=== PATIENT | female | born 1940 | race Caucasian/White ===

== ENCOUNTER 2019-08-07 09:56 | Observation (INO) ==
--- NOTE | 2019-08-07 10:16 | PROVIDER DOCUMENTATION ---
HPI-General Adult - General Chief Complaint: Dizziness Stated Complaint: CP X A COUPLE OF DAYS.... HP Time Seen by Provider: 08/07/19 10:05 Source: patient Allergies/Adverse Reactions: Patient Allergies Allergy/AdvReac Type Severity Reaction Status Date / Time cephalexin monohydrate * AdvReac Intermediate DIARRHEA Verified 10/11/15 17:55 [From Keflex] lactose AdvReac Intermediate DIARRHEA Verified 10/11/15 17:55 Sulfa (Sulfonamide AdvReac Mild NAUSEA Verified 10/11/15 17:55 Antibiotics) Home Medications: Home Medication List Medication Instructions Recorded Confirmed Last Taken Type Aspirin 81 mg PO DAILY 02/28/13 08/07/19 08/07/19 08:00 History 81 mg Folic Acid 1 mg PO DAILY 10/11/15 08/07/19 08/07/19 08:00 History 1 mg Methotrexate 6 tab PO DIRECTED 10/11/15 08/07/19 08/04/19 21:00 History 15 mg Clopidogrel Bisulfate [Plavix] 75 mg PO DAILY 08/07/19 08/07/19 08/07/19 08:00 History 75 mg Diltiazem HCl [Cartia Xt] 120 mg PO DAILY 08/07/19 08/07/19 08/07/19 08:00 History 120 mg Meclizine HCl 25 mg PO PRN PRN 08/07/19 08/07/19 Unknown History Pantoprazole [Protonix] 40 mg PO DAILY 08/07/19 08/07/19 08/07/19 08:00 History 40 mg Pravastatin Sodium 20 mg PO HS 08/07/19 08/07/19 08/06/19 21:00 History 20 mg Sitagliptin Phos/Metformin HCl 1 ea PO DAILY 08/07/19 08/07/19 08/07/19 08:00 History [Janumet Xr 100-1,000 mg Tablet] 1 tab - History of Present Illness -Gen Adult Nature of Presenting Problems: Pt. is 78 yof that presents with c/o CP intermittently, right shoulder pain, left jaw pain and some nausea. She denies any vomiting or SOB. She reports having 12 stints placed and the last one was in 2010. Pt. denies any other complaints. Location of Pain/Injury: reports: chest. denies: none, head, face, mouth, neck, upper extremity, hand(s), abdomen, back, pelvis, genitalia, lower extremity, feet, upper body, lower body, generalized, other Pain Radiation: reports: arm(s) (Right), jaw. denies: no radiation, back, buttocks, chest, epigastric, feet, groin, flank (L), legs (lower), LLQ, LUQ, neck, periumbilical, flank (R), RLQ, RUQ, shoulder(s), scapula, scrotal, sternal notch, suprapubic, legs (upper), urethral, vaginal, other Quality of Pain: reports: aching. denies: burning, pressure, tightness Severity: reports: mild. denies: moderate, severe Onset/Duration: reports: abrupt, 2 days ago Timing: reports: improving, intermittent. denies: constant, changing over time, getting worse Context/Activities at Onset: reports: none. denies: light activity, moderate activity, vigorous activity, recent emotional stress, recent physical stress, recent trauma history, possible bad food, cold exposure, eating, out of country travel, rest, sleep, sexual activity, other Modifying Factors: improves with: nothing Associated Symptoms: reports: chest pain, dizziness, nausea. denies: denies symptoms, anxiety, arm pain, back/neck pain, constipation, cough, diaphoresis, diarrhea, EENT symptoms, fatigue, fever/chills, genitourinary problems, headaches, heartburn, joint pain, loss of appetite, malaise, muscle aches, sinus congestion/drainage, rash, seizure, shortness of breath, sensory/motor loss, pain with inspiration, swelling/mass in abdomen, syncope, vomiting, weakness, trouble walking, other Similar Symptoms Previously?: Yes Recently seen or treated by another doctor?: No Review of Systems - Adult - REVIEW OF SYSTEMS - ADULT Constitutional: reports: no symptoms reported Eyes: reports: no symptoms reported Ears, Nose, Mouth & Throat: reports: no symptoms reported Cardiovascular: reports: see HPI, chest pain. denies: irregular heart rate, palpitations, syncope Respiratory: reports: no symptoms reported Gastrointestinal: reports: see HPI, nausea. denies: hematemesis, diarrhea, vomiting Genitourinary: reports: no symptoms reported Musculoskeletal: reports: no symptoms reported Integumentary: reports: no symptoms reported Neurological: reports: see HPI, dizziness/vertigo. denies: numbness, seizure, tremors Psychiatric: reports: no symptoms reported Past History - Adult - PAST MEDICAL HISTORY-ADULT Review of Records: reports: Old Records Reviewed, Nursing Assessment Review, Medications Reviewed, Social history reviewed & non-contributory. Major Childhood Illnesses: reports: denies history Cardiovascular: reports: other (12 heart stents) Gastrointestinal: reports: IBS Endocrine/Immune: reports: Diabetes - IMMUNIZATION STATUS Childhood Immunizations: See Nurse Assessment Flu Vaccine: See Nurse Assessment - FAMILY HISTORY Family History: reviewed, not pertinent - SOCIAL HISTORY Smoking: denies Physical Exam-General - PHYSICAL EXAM-ADULT Initial Vital Signs Reviewed: Yes - CONSTITUTIONAL General Appearance: alert, no apparent distress. negative: anxious, slow to respond, obtunded, combative - EYES Eyes: PERRL/EOMI, pink conjunctivae - HEAD, EARS, NOSE, MOUTH & THROAT HENMT: normocephalic/atraumatic, moist mucous membranes. negative: angioedema, frontal tenderness, maxillary tenderness - NECK Neck: non-tender, full range of motion, supple, normal inspection - RESPIRATORY Respiratory: lungs clear, normal breath sounds - CARDIOVASCULAR Cardiovascular: normal peripheral pulses, regular rate, rhythm, no edema - GASTROINTESTINAL (ABDOMEN) Abdominal Exam: normal bowel sounds, non tender, soft - LYMPHATIC Lymphatic: no adenopathy - MUSCULOSKELETAL Back Exam: normal inspection, no CVA tenderness, no vertebral tenderness Extremity: normal range of motion, non-tender, normal gait, normal inspection. negative: erythema, swelling, tenderness Peripheral Pulses: radial (R): 2+, radial (L): 2+ - SKIN Integumentary: normal color, normal turgor, warm/dry - NEUROLOGIC Neurologic: grossly normal, no motor/sensory deficits - PSYCHIATRIC Psych/Mental Status: normal mood/affect, normal thought content, normal thought process, oriented x 3. negative: anxious, paranoid, tearful Progress - PLAN OF CARE/RESULTS Progress/Plan/Lab Results: Vital Signs - 8 hr 08/07/19 09:59 Temperature 98.2 F Pulse Rate 67 Respiratory Rate 20 Blood Pressure 165/81 O2 Sat by Pulse Oximetry 98 Orders Category Date Time Status Saline Loc NOW Care 08/07/19 10:06 Active CHEST-PORTABLE [RAD] Stat Exams 08/07/19 10:06 Ordered CBC WITH ELECTRONIC DIFF [HEME] Stat Lab 08/07/19 10:06 Uncollected CK PROFILE [SP CHEM] Stat Lab 08/07/19 10:06 Uncollected COMPREHENSIVE METABOLIC PANEL [CHEM] Stat Lab 08/07/19 10:06 Uncollected TROPONIN T Stat Lab 08/07/19 10:06 Uncollected URINALYSIS W/POSS RFLX CULT [URINALYSIS] Stat Lab 08/07/19 10:06 Uncollected EKG [EKG] Stat Ther 08/07/19 10:05 Ordered Laboratory Tests 08/07/19 08/07/19 08/07/19 10:47 10:47 10:47 WBC 10.19 RBC 4.64 Hgb 12.0 Hct 37.9 MCV 81.7 MCH 25.9 L MCHC 31.7 L RDW Std Deviation 21.5 H Plt Count 303 MPV 11.1 H Immature Gran % (Auto) 0.2 Neut % (Auto) 78.5 H Lymph % (Auto) 13.4 L [place] % (Auto) 6.6 Eos % (Auto) 1.0 Baso % (Auto) 0.3 Immature Gran # (Auto) 0.02 Neut # (Auto) 8.00 H Lymph # (Auto) 1.37 [place] # (Auto) 0.67 H Eos # (Auto) 0.10 Baso # (Auto) 0.03 Sodium 141 Potassium 4.3 Chloride 105 Carbon Dioxide 23 L Anion Gap 13 BUN 14 Creatinine 0.8 Estimated GFR/1.73 m2 > 60 BUN/Creatinine Ratio 18 Glucose 153 H Calculated Osmolality 285 Calcium 9.4 Total Bilirubin 0.43 AST 16 ALT 15 Alkaline Phosphatase 61 Creatine Kinase 38 Troponin T < 0.010 Total Protein 6.3 Albumin 4.2 Globulin 2.1 Albumin/Globulin Ratio 2.0 Urine Source Urine Color Urine Turbidity Urine pH Ur Specific [place] Urine Protein Ur Glucose (Stick) Ur Ketones (Stick) Urine Blood Urine Nitrite Urine Bilirubin Urobilinogen Dipstick Urine Leukocytes Urine WBC (Auto) Urine RBC (Auto) U Epithel Cells (Auto) Urine Bacteria (Auto) 08/07/19 08/07/19 08/07/19 11:00 12:55 12:55 WBC RBC Hgb Hct MCV MCH MCHC RDW Std Deviation Plt Count MPV Immature Gran % (Auto) Neut % (Auto) Lymph % (Auto) [place] % (Auto) Eos % (Auto) Baso % (Auto) Immature Gran # (Auto) Neut # (Auto) Lymph # (Auto) [place] # (Auto) Eos # (Auto) Baso # (Auto) Sodium Potassium Chloride Carbon Dioxide Anion Gap BUN Creatinine Estimated GFR/1.73 m2 BUN/Creatinine Ratio Glucose Calculated Osmolality Calcium Total Bilirubin AST ALT Alkaline Phosphatase Creatine Kinase 35 Troponin T < 0.010 Total Protein Albumin Globulin Albumin/Globulin Ratio Urine Source CLEAN CATCH Urine Color YELLOW Urine Turbidity CLEAR Urine pH 6.0 Ur Specific [place] 1.008 Urine Protein NEGATIVE Ur Glucose (Stick) NEGATIVE Ur Ketones (Stick) NEGATIVE Urine Blood NEGATIVE Urine Nitrite NEGATIVE Urine Bilirubin NEGATIVE Urobilinogen Dipstick NORMAL Urine Leukocytes NEGATIVE Urine WBC (Auto) <10 Urine RBC (Auto) <10 U Epithel Cells (Auto) <10 Urine Bacteria (Auto) NEGATIVE Dr. Hand at bedside for evaluation. Discussed results and plan of care with patient. Pt. reluctantly agrees to plan of admission. Result Diagrams: 08/07/19 10:47 08/07/19 10:47 - EKG 1 Time of EKG reading by physician:: 10:12 EKG Read and Signed by:: Anthony Hand EKG Interpretation (*Must complete 3 of following elements*): Abnormal Rate: 57 Rhythm: NSR [place]: normal QRS: normal MT Interval: shortened ST Wave: normal - XRAY 1 XRAY Study: Chest ([facility] - [address] [facility] [address] [place] [id number] [facility] - [address] [place] [address] Department of Imaging Patient: ANN HORTON HAD Date: 08/07/19MR#: [id number] : 1940DM Status: PRE ERAcct#: [id number] Age/Sex: 78/FRoom/Bed: Loc: ED Ordering Physician: Tariq Norris Family Physician: Delfino Dixon DO Reason for Procedure: dizziness/CP Signed EXAM: CHEST-PORTABLE HISTORY: dizziness/CP TECHNIQUE: Single view COMPARISON: 09/03/2018 FINDINGS: The lungs are well expanded. The heart is not enlarged. The vessels are not distended. There are no infiltrates. No effusion identified. Stable lower left lung nodules. There is a cardiac stent. IMPRESSION: No acute abnormality. Electronically signed by Keenan Chambers 08/07/2019 10:37 AM 08/07/19 1037 Interpreting Physician: Keenan Chambers MD Dictated Date/Time: 08/07/19 1037 cc: Tariq Norris; Delfino Dixon DO) XRAY Interpretation: See note - CONSULTS/PCP/HOSPITALIST Notification #1 *Consult/PCP/Hospitalist*: Lorena for hospitilist Time Discussed: 14:09 Reason/Comments: Admission Consult Disposition: Will see in ED, Admit Departure - Departure Date of Disposition Decision: 08/07/19 Time of Disposition Decision: 14:06 DIAGNOSIS: Chest pain Qualifiers: Chest pain type: unspecified Qualified Code(s): R07.9 - Chest pain, unspecified Disposition: ADMITTED INPATIENT 09 Certified Medical Emergency: Emergent Condition: Stable Referrals and Follow-Ups: Delfino Dixon DO [Primary Care Provider] - - Critical Care Note This patient required my direct & personal management of CC.: No Attestation - Physician/ JOON Attestation Patient care was provided by Advanced Practice Provider:: Yes Advanced Practice Provider:: Tariq Norris Advanced Practice Provider documentation review:: The Mid-level provider docu mentation, treatment plan and medical decision making was reviewed by the physician who agrees with all treatment and medical decision making by the P. The physician spent face to face time with patient:: Yes Advanced Practice Provider documentation review:: Supervising physician onsite and consulted in the evaluation and care of this patient. The physician did have a face to face encounter with the patient. - HEART Score HEART Score: History: Highly Suspicious HEART Score: ECG: Non-Specific Repolarization Disturbance/LBBB/PM HEART Score: Age: > or = 65 Years HEART Score: Risk Factors for Atherosclerotic Disease: > or = 3 Risk Factors or History of Atherosclerotic Disease HEART Score: Troponin: < or = Normal Limit Total HEART Score:: 7
--- NOTE | 2019-08-07 10:40 | Diag Imaging Result Doc PS360 ---
EXAM: CHEST-PORTABLE HISTORY: dizziness/CP TECHNIQUE: Single view COMPARISON: 09/03/2018 FINDINGS: The lungs are well expanded. The heart is not enlarged. The vessels are not distended. There are no infiltrates. No effusion identified. Stable lower left lung nodules. There is a cardiac stent. IMPRESSION: No acute abnormality. Electronically signed by Keenan Chambers 08/07/2019 10:37 AM
[2019-08-07 11:02] LABS: BASO# 0.03 X1000 (0.0-0.2); BASO% 0.3 % (0.0-0.8); HEMATOCRIT 37.9 % (37.0-47.0); IMM GRAN# 0.02 X1000 (0.0-0.04); IMM GRAN% 0.2 % (0.0-0.5); LYMPH# 1.37 X1000 (1.2-3.4); LYMPH% 13.4 % (20.5-51.1); MCH 25.9 PG (27-31); MCHC 31.7 g/dL (33-37); MCV 81.7 FL (81-99); MONO# 0.67 X1000 (0.11-0.59); MONO% 6.6 % (1.7-9.3); MPV 11.1 FL (7.4-10.4); NEUT% 78.5 % (42.2-75.2); PLT 303 X1000 (130-400); RBC 4.64 XMIL (4.2-5.4); RDW 21.5 % (11.5-14.5); WBC 10.19 X1000 (4.8-10.8)
[2019-08-07 11:12] LABS: URINE SOURCE CLEAN CATCH
[2019-08-07] MEDS ORDERED: CATAPRES PO ONE (11:18)
[2019-08-07 11:19] LABS: BILIRUBIN URINE NEGATIVE (NEGATIVE); BLOOD URINE NEGATIVE (NEGATIVE); COLOR YELLOW; GLUCOSE URINE NEGATIVE (NEGATIVE); KETONE URINE NEGATIVE (NEGATIVE); LEUKOCYTES URINE NEGATIVE (NEGATIVE); NITRITE URINE NEGATIVE (NEGATIVE); PROTEIN URINE NEGATIVE (NEGATIVE); SP GRAVITY URINE 1.008; TURBIDITY URINE CLEAR (CLEAR); UROBILINOGEN URINE NORMAL (NORMAL)
[2019-08-07 11:21] LABS: UR EPITHELIAL CELLS <10 /HPF (<10); URINE BACTERIA NEGATIVE /HPF; URINE RBC <10 /HPF (<10); URINE WBC <10 /HPF (<10)
[2019-08-07 11:28] LABS: AGAP 13; ALBUMIN 4.2 g/dL (3.5-5.0); ALKALINE PHOSPHATASE 61 U/L (32-104); BUN 14 mg/dL (8-22); CALCIUM 9.4 mg/dL (8.8-10.2); CHLORIDE 105 mmol/L (98-107); CK PROFILE 38 U/L (24-173); COSMO 285; CREATININE 0.8 mg/dL (0.5-0.9); ESTIMATED GFR > 60; GLUCOSE 153 mg/dL (70-104); GOT 16 U/L (10-30); GPT 15 U/L (10-36); POTASSIUM 4.3 mmol/L (3.5-5.1); SODIUM 141 mmol/L (136-145); TCO2 23 mmol/L (25-35); TOTAL BILIRUBIN 0.43 mg/dL (0.20-1.00); TOTAL PROTEIN 6.3 g/dL (6.3-8.3)
--- NOTE | 2019-08-07 11:49 | EKG Report ---
Test Performed on : 08/07/2019 10:03:38 AM Test Reason : DIZZY Blood Pressure : / mmHG Vent. Rate : 057 BPM Atrial Rate : 057 BPM P-R Int : 000 ms QRS Dur : 098 ms QT Int : 428 ms P-R-T Axes : 000 013 050 degrees QTc Int : 416 ms Junctional rhythm. Abnormal ECG When compared with ECG of 06-JAN-2014 00:39, Junctional rhythm. has replaced Sinus rhythm. Unconfirmed Result
--- NOTE | 2019-08-07 13:18 | EKG Report ---
Test Performed on : 08/07/2019 12:56:39 PM Test Reason : REPEAT Blood Pressure : / mmHG Vent. Rate : 055 BPM Atrial Rate : 055 BPM P-R Int : 152 ms QRS Dur : 096 ms QT Int : 466 ms P-R-T Axes : 059 014 051 degrees QTc Int : 445 ms Sinus bradycardia. with occasional premature ventricular complexes. Incomplete right bundle branch block Borderline ECG When compared with ECG of 07-AUG-2019 10:03, (Unconfirmed) Sinus rhythm. has replaced Junctional rhythm. Unconfirmed Result
--- NOTE | 2019-08-07 13:59 | ED EKG INTERP ---
This chart was entered by Traci Valladares Scribe, acting as scribe for Anthony Hand MD. EKG Interpretation - EKG Time of EKG reading by physician:: 12:56 EKG Read and Signed by:: Anthony Hand EKG Interpretation (*Must complete 3 of following elements*): Abnormal Rate: 55 Rhythm: sinus penny [place]: normal [place] Interval: normal Comments: high voltage; R hemiblock; PVCs Attestation - Physician/ JOON Attestation Patient care was provided by Advanced Practice Provider:: Yes Advanced Practice Provider:: Tariq Norris Advanced Practice Provider documentation review:: The Mid-level provider documentation, treatment plan and medical decision making was reviewed by the physician who agrees with all treatment and medical decision making by the P. The physician spent face to face time with patient:: No Advanced Practice Provider documentation review:: Supervising physician onsite and consulted in the evaluation and care of this patient. The physician did not have a face to face encounter with the patient. This chart was documented by the indicated scribe, (Traci Valladares Scribe) and accurately reflects the services I performed and decisions made by Peace hutson Kent A., MD, as attested by the provider's signature.
--- NOTE | 2019-08-07 17:46 | HISTORY AND PHYSICAL ---
ADDENDUM: I have seen and examined Ms. Krishnamurthy today. Ms. Krishnamurthy presents with her main concern because of elevated blood pressure, but she also has some chest discomfort radiating to her neck and the right shoulder intermittently for the past 3 days. She said at home, her blood pressure went up to 167 plus. Here in the emergency room, it was found that she had a blood pressure up to 208/87. She has been admitted to rule out any acute coronary syndrome and also for adequate blood pressure control. Her current blood pressure is 144/59. Her physical exam for the most part is unremarkable. I have also reviewed her laboratory data. Troponin so far is unremarkable. Her EKG has been done twice, no ST-segment or T-wave abnormality. The patient has a normal sinus rhythm. Occasional PVCs noted. ASSESSMENT/PLAN: 1. Chest discomfort on admission with negative initial troponin and unremarkable EKG. We think this is probably related to precordialgia associated with severe hypertension. Blood pressures have been better controlled. The patient's symptoms have also improved. We are going to repeat a troponin 3 times to rule out any acute coronary syndrome. We will also repeat her EKG in the morning. If everything comes back negative, I think we will be okay to discharge her. 2. History of coronary artery disease, status post multiple stents. According to Ms. Krishnamurthy, she had 12 stents in the past. Follows up with Dr. Valdez in [facility]. 3. Microcytosis. The patient does have iron studies from 2016, which were normal. We will repeat this test in the morning. 4. Diabetes mellitus. The patient is on oral hypoglycemic agents. We will use insulin regimen for now. I think she will be okay going back home on her oral regimen. 5. Dyslipidemia. Please refer to the details of the history and physical which has been dictated by the OUTREACH DIRECTOR in the chart. I have reviewed the plan with her. cc: Alcon Shannon MD
--- NOTE | 2019-08-07 20:20 | HISTORY AND PHYSICAL ---
CHIEF COMPLAINT: Chest pain, left jaw and shoulder pain. HISTORY OF PRESENT ILLNESS: This is a very pleasant 78-year-old female with a history of coronary artery disease status post multiple stents and hypertension. She is followed by Dr. Valdez in [place]. She presents to the emergency room complaining of chest discomfort that has radiated to her neck and her right shoulder intermittently over the past 3 days, along with blood pressures that have been up to the 160s to 170 systolic. On arrival to the emergency room, she was found to have a blood pressure of 208/87. She was given clonidine, and pressures have been in the 120s to 150s over primarily 60s to 70s since. Chest pressure and jaw and shoulder pain resolved once blood pressure decreased. The patient states she was having trouble with hypotension, and Dr. Valdez and her primary care physician have been adjusting her antihypertensive medications accordingly. She denied any syncope or dizziness, any shortness of breath, fevers, cor hills. PAST MEDICAL HISTORY: 1. Coronary artery disease status post multiple cardiac stents. 2. Diabetes mellitus type 2. 3. Hypertension. PAST SURGICAL HISTORY: Appendectomy, cataract removal, hysterectomy, cardiac stents. SOCIAL HISTORY: She denies alcohol, tobacco, or illicit drug use. ALLERGIES: Keflex, and sulfa, which causes nausea and diarrhea. HOME MEDICATIONS: A list will be obtained by the nursing staff, and once verified, will review and restart as appropriate. REVIEW OF SYSTEMS: Discussed with patient with pertinent positives stated in the HPI. She denied any syncope or dizziness, any shortness of breath, PND, orthopnea, fevers or chills, any nausea, vomiting, diarrhea, constipation, black or bloody vomitus or stools, any hematuria, dysuria, frequency or urgency. PHYSICAL EXAMINATION: GENERAL: This is a 78-year-old female who is sitting up on a stretcher in the emergency room in no distress. VITAL SIGNS: Blood pressure is 145/50 with a heart rate of 54. Respirations are 20, temperature 97.7 oral with room air saturation 99%. EYES: Pupils equal and round and react to light. EOMs are intact. Sclerae are anicteric. HEENT: Head is normocephalic, atraumatic. Mucous membranes are moist. NECK: Supple with trachea midline. CARDIOVASCULAR: Regular rate and rhythm. S1 and S2 appreciated. No murmur. She has no lower extremity edema. Calves are nontender bilaterally. PULMONARY: Breath sounds are clear. No increased work of breathing noted. Chest rises and falls symmetrically with respiration. GASTROINTESTINAL: Abdomen is soft, nontender, nondistended with bowel sounds in all 4 quadrants. NEUROLOGIC: She is alert and oriented x3. SKIN: Warm and dry. LABS: WBC is 10.1 with hemoglobin 12, hematocrit 37.9, platelets of 303. Sodium is 141, potassium 4.3, BUN 14, creatinine 0.8 with a glucose of 153. Troponins are negative on multiple occasions. Urinalysis is essentially negative. EKG reveals sinus bradycardia at a rate of 55 with occasional PVCs with an incomplete right bundle branch block. Chest x-ray reveals no acute abnormality. ASSESSMENT AND PLAN: 1. Chest discomfort radiating to the neck and right shoulder. Initial troponins and EKG have been unremarkable. We will continue to trend cardiac profile and troponins as well as EKGs to rule out coronary syndrome. 2. History of coronary artery disease, status post multiple stents. She is being followed by Dr. Valdez at [facility]. 3. Diabetes mellitus. We will continue her home medications once identified. In the meantime, we will use pattern blood glucose with sliding scale insulin. 4. Dyslipidemia. We will continue pravastatin. 5. The patient was evaluated, and the plan was discussed with Dr. Shannon. Further treatments pending hospital course. Dictated by JERE Mcdaniels for Alcon Shannon MD cc: JERE Mcdaniels MD
[2019-08-08 07:41] LABS: HEMOGLOBIN 11.6 g/dL (12.0-16.0); MCH 26.1 PG (27-31); MCHC 31.4 g/dL (33-37); MCV 83.1 FL (81-99); MPV 10.9 FL (7.4-10.4); RBC 4.45 XMIL (4.2-5.4); RDW 21.9 % (11.5-14.5); WBC 8.05 X1000 (4.8-10.8)
[2019-08-08 08:05] LABS: AGAP 11; BUN 11 mg/dL (8-22); CALCIUM 9.2 mg/dL (8.8-10.2); CHLORIDE 107 mmol/L (98-107); COSMO 282; CREATININE 0.7 mg/dL (0.5-0.9); ESTIMATED GFR > 60; GLUCOSE 123 mg/dL (70-104); POTASSIUM 3.9 mmol/L (3.5-5.1); SODIUM 141 mmol/L (136-145); TCO2 23 mmol/L (25-35)
[2019-08-08 08:12] LABS: IRON SATURATION 28 %; TIBC 289 ug/dL; TOTAL IRON 81 ug/dL (49-151); UNBOUND IRON 208 ug/dL (112-346)
[2019-08-08 08:17] LABS: FERRITIN 22 ng/mL (13-150)
--- NOTE | 2019-08-08 08:24 | EKG Report ---
Test Performed on : 08/08/2019 05:55:26 AM Test Reason : CP Blood Pressure : / mmHG Vent. Rate : 052 BPM Atrial Rate : 052 BPM P-R Int : 156 ms QRS Dur : 100 ms QT Int : 472 ms P-R-T Axes : 063 046 073 degrees QTc Int : 438 ms Sinus bradycardia. with sinus arrhythmia. Incomplete right bundle branch block Septal infarct , age undetermined Abnormal ECG When compared with ECG of 07-AUG-2019 12:56, (Unconfirmed) premature ventricular complexes. are no longer present Septal infarct is now present Confirmed by Braden MALDONADO, Suraj ([id number]) on 08/10/2019 8:30:47 AM
[2019-08-08 08:28] VITALS: BP 133/51
[2019-08-08] MEDS ORDERED: GLUCOPHAGE XR PO SCH (09:00)
[2019-08-08] MEDS ORDERED: CARDIZEM CD PO SCH (09:00)
[2019-08-08] MEDS ORDERED: ASPIRIN PO SCH (09:00)
[2019-08-08] MEDS ORDERED: JANUVIA PO SCH (09:00)
[2019-08-08] MEDS ORDERED: PROTONIX PO SCH (09:00)
[2019-08-08] MEDS ORDERED: PLAVIX PO SCH (09:00)
[2019-08-08] MEDS ORDERED: FOLIC ACID PO SCH (09:00)
--- NOTE | 2019-08-08 15:09 | DISCHARGE SUMMARY ---
ADMISSION DATE: 08/07/2019 DISCHARGE DATE: 08/08/2019 DISPOSITION: To home. FOLLOWUP: 1. Dr. Valdez in [facility]. 2. Dr. Dixon. CONSULTATION DURING THIS ADMISSION: None. INVASIVE PROCEDURES DONE DURING THIS ADMISSION: None. IMAGING STUDIES OF SIGNIFICANCE: Chest x-ray showed no acute disease. Initial EKG showed normal sinus rhythm, mild bradycardia, but no ST-segment abnormality. 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 The patient's troponins were done 4 times, all negative. Ferritin was 22. ADMISSION DIAGNOSES: 1. Chest discomfort. 2. History of coronary artery disease with multiple stents. 3. Macrocytosis. 4. Diabetes mellitus. 5. Dyslipidemia. DIAGNOSES AT THE TIME OF DISCHARGE: 1. Atypical chest pain on presentation with normal EKGs and normal troponins, most likely noncardiac. Discomfort resolved during the hospital course. The patient's blood pressure was extremely elevated on admission. We think this could have contributed to the chest discomfort. 2. Severe uncontrolled hypertension on admission, resolved. 3. History of coronary artery disease, status post multiple stents. The patient follows up with Dr. Valdez in [facility]. 4. Microcytosis with underlying iron deficiency. She has been advised to replenish and also follow up with her primary care and get GI evaluation. 5. Diabetes mellitus. The patient is on oral hypoglycemic agent. 6. Dyslipidemia, stable. DISCHARGE MEDICATIONS: 1. Aspirin 81 mg p.o. daily. 2. Folic acid 1 mg p.o. daily. 3. Methotrexate as needed. 4. Janumet 1 tab daily. 5. Clopidogrel 75 mg p.o. daily. 6. Pantoprazole 40 mg p.o. daily. 7. Diltiazem 120 mg p.o. daily. 8. Pravastatin 20 mg p.o. at bedtime. PRESENTING COMPLAINT: Chest discomfort. HISTORY OF PRESENT COMPLAINT: Mr. Krishnamurthy is a 78-year-old female who is known to have coronary atherosclerosis, has had multiple stents, according to her, 12 stents in her coronaries, follows up with Dr. Valdez in [facility], came to the emergency room because of some nonspecific chest discomfort which, according to her, was of no similarity to her previous MIs. She was even more concerned of her blood pressure at home and that was the main reason why she came to the hospital. Upon presenting to the emergency room, blood pressure was 165/81, it went up to 208/87 at some point at the ER. She was given a dose of Klonopin and that seems to have improved remarkably her blood pressure/ Ms Krishnamurthy was therefore admitted for chest discomfort, rule out ACS. HOSPITAL COURSE: Ms. Krishnamurthy was admitted to the medical floor under telemonitoring. Troponins were trended 4 times that came back negative. An EKG was done 2 hours later after she presented and early this morning all of which have been the same, no changes. Ms. Krishnamurthy' blood pressure continues to be remarkably stable during the hospital course and she was not put on any medication. This morning she has been started back on her home medicines. According to her, she has had issues in the past with blood pressures. I do not know why she is not on a beta bishnu or any ANDI inhibitor, taking into consideration her history. She is just on diltiazem, which according to her, her case managers just made changes to the dose recently to 120 instead of 180. I asked if she had any issues with cardiac arrhythmias (atrial fibrillation), but she said no that was meant for her blood pressure control. Of note, her pulse has been on the lower end in the late 40s to 50s, but she is completely asymptomatic. Her symptoms have completely resolved. Her blood pressure is stabilized. Her lab works have not revealed any abnormality in her troponins. So, we think she is stable for discharge. I have advised her to keep a log of her blood pressures for the next week to 2 weeks, as well as her pulse and review it with either Dr. Dixon or Dr. Valdez. Ms. Krishnamurthy was found to have a ferritin level of 22 and she is slightly borderline microcytic, so she has been advised to get iron over the counter and get in to see her primary care and see if she can have a GI consult on an outpatient basis. All of the discharge instructions have been discussed with her and she voiced understanding. Time spent for discharge was 38 minutes. cc: Alcon Shannon MD
[2019-08-08] MEDS ORDERED: PRAVACHOL PO SCH (21:00)
[2019-08-11] MEDS ORDERED: METHOTREXATE PO SCH (20:00)
== END 2019-08-08 10:44 | disposition home or self-care (01) ==
LOC: ED 09:56 → 3N 09:56
PROVIDERS: ATTEND Internal Medicine

== ENCOUNTER 2019-08-24 23:23 | Inpatient (IN) ==
[2019-08-24] MEDS ORDERED: CARDIZEM IV ONE ×2 (23:35→23:56)
[2019-08-24] MEDS ORDERED: MAGNESIUM SULFATE 2 GM/S.W.I. 2 GM/50 ML IVPB IV ONE (23:36)
[2019-08-24] MEDS ORDERED: ASPIRIN PO ONE (23:37)
[2019-08-24] MEDS ORDERED: CARDIZEM 100 MG/NS 100 MG/100 ML IVPB IV SCH (23:45)
[2019-08-24] MEDS ORDERED: MORPHINE IV ONE (23:56)
[2019-08-24] MEDS ORDERED: NITROGLYCERIN TOP ONE (23:57)
[2019-08-25] MEDS ORDERED: CORDARONE 360 MG/D5W 360 MG/200 ML IV.SOLN IV ONE (00:02)
[2019-08-25] MEDS ORDERED: MORPHINE ONE (00:03)
[2019-08-25] MEDS ORDERED: NITROGLYCERIN ONE (00:03)
[2019-08-25 00:04] LABS: INR 1.03; PROTIME 13.6 Seconds (11.0-16.0)
--- NOTE | 2019-08-25 00:18 | PROVIDER DOCUMENTATION ---
HPI-Chest Pain - General Chief Complaint: HEART ALERT Stated Complaint: CP Time Seen by Provider: 08/24/19 23:34 Source: patient, EMS, RN notes reviewed Allergies/Adverse Reactions: Patient Allergies Allergy/AdvReac Type Severity Reaction Status Date / Time cephalexin monohydrate * AdvReac Intermediate DIARRHEA Verified 08/25/19 00:16 [From Keflex] lactose AdvReac Intermediate DIARRHEA Verified 08/25/19 00:16 Sulfa (Sulfonamide AdvReac Mild NAUSEA Verified 08/25/19 00:16 Antibiotics) Home Medications: Home Medication List Medication Instructions Recorded Confirmed Last Taken Type Aspirin 81 mg PO DAILY 02/28/13 08/25/19 08/07/19 08:00 History 81 mg Folic Acid 1 mg PO DAILY 10/11/15 08/25/19 08/07/19 08:00 History 1 mg Methotrexate 6 tab PO DIRECTED 10/11/15 08/25/19 08/04/19 21:00 History 15 mg Clopidogrel Bisulfate [Plavix] 75 mg PO DAILY 08/07/19 08/25/19 08/07/19 08:00 History 75 mg Meclizine HCl 25 mg PO PRN PRN 08/07/19 08/25/19 Unknown History Pantoprazole [Protonix] 40 mg PO DAILY 08/07/19 08/25/19 08/07/19 08:00 History 40 mg Pravastatin Sodium 20 mg PO HS 08/07/19 08/25/19 08/06/19 21:00 History 20 mg Sitagliptin Phos/Metformin HCl 1 ea PO DAILY 08/07/19 08/25/19 08/07/19 08:00 History [Janumet Xr 100-1,000 mg Tablet] 1 tab Amlodipine Besylate 5 mg PO DAILY 08/25/19 08/25/19 Unknown History - History of Present Illness-CP Nature of Presenting Problem: 78 YO F hx of CAD s/p stents brought in by EMS for chest pain. in route, pt had vfib arrest and was shocked 2x. On exam, pt AAOx3, and complaining of chest p ain. EKG showing Afib with RVR. CP began at 10pm. Location: reports: substernal Chest Pain Radiation: reports: no radiation Quality of Pain: reports: pressure, sharp, tightness Severity in ED: moderate Onset/Duration: 1-3 hours ago Timing: improving Context/Activities at Onset: reports: none, other (pt states she was going to bed) Modifying Factors: improves with: nothing Nitro Today/Relief: no nitro taken today Aspirin Treatment Today: 325 mg x 1, provided by EMS Similar Symptoms Previously?: No Recently Seen Here or By Another Healthcare Provider: No Review of Systems - Adult - REVIEW OF SYSTEMS - ADULT Constitutional: denies: chills, fever Eyes: denies: blurred vision, double vision Ears, Nose, Mouth & Throat: reports: no symptoms reported Cardiovascular: reports: no symptoms reported Respiratory: reports: no symptoms reported. denies: cough, shortness of breath Gastrointestinal: reports: no symptoms reported Genitourinary: reports: no symptoms reported Musculoskeletal: reports: no symptoms reported Integumentary: reports: no symptoms reported Neurological: denies: dizziness/vertigo, numbness, syncope Psychiatric: reports: no symptoms reported Endocrine: reports: no symptoms reported Hematologic/Lymphatic: reports: no symptoms reported Past History - Adult - PAST MEDICAL HISTORY-ADULT Review of Records: reports: Old Records Reviewed, Medications Reviewed, Social history reviewed & non-contributory. Major Childhood Illnesses: reports: denies history Cardiovascular: reports: HTN, hyperlipidemia, other (12 heart stents) Gastrointestinal: reports: IBS Endocrine/Immune: reports: Diabetes - PRIOR SURGERIES/PROCEDURES Surgical/Procedure History: denies: recent surgery - IMMUNIZATION STATUS Childhood Immunizations: See Nurse Assessment Flu Vaccine: See Nurse Assessment - FAMILY HISTORY Family History: reviewed, not pertinent - SOCIAL HISTORY Smoking: denies Substance Use: denies Living Situation: family Physical Exam-General - PHYSICAL EXAM-ADULT Initial Vital Signs Reviewed: Yes - CONSTITUTIONAL General Appearance: other (pt was AAOx3 on exam and at arrival to ED) - EYES Eyes: PERRL/EOMI, pink conjunctivae - HEAD, EARS, NOSE, MOUTH & THROAT HENMT: normocephalic/atraumatic, moist mucous membranes - NECK Neck: supple - RESPIRATORY Respiratory: lungs clear, normal breath sounds, no pleuratic chest pain, no respiratory distress - CARDIOVASCULAR Cardiovascular: tachycardia - GASTROINTESTINAL (ABDOMEN) Abdominal Exam: non tender, soft - MUSCULOSKELETAL Back Exam: no CVA tenderness Extremity: no pedal edema - SKIN Integumentary: normal color, normal turgor, warm/dry - PSYCHIATRIC Psych/Mental Status: normal mood/affect, oriented x 3 - HEART Score HEART Score: History: Highly Suspicious HEART Score: ECG: Significant ST-Deviation HEART Score: Age: > or = 65 Years HEART Score: Risk Factors for Atherosclerotic Disease: > or = 3 Risk Factors or History of Atherosclerotic Disease HEART Score: Troponin: < or = Normal Limit Total HEART Score:: 8 Progress - PLAN OF CARE/RESULTS Progress/Plan/Lab Results: Vital Signs - 8 hr 08/25/19 07:00 Pulse Rate 56 L Respiratory Rate 16 O2 Sat by Pulse Oximetry 96 Laboratory Results - last 24 hr 08/24/19 08/24/19 08/24/19 23:30 23:30 23:30 WBC 11.01 H RBC 4.61 Hgb 12.0 Hct 38.6 MCV 83.7 MCH 26.0 L MCHC 31.1 L RDW Std Deviation 21.2 H Plt Count 370 MPV 11.9 H Immature Gran % (Auto) 0.9 H Neut % (Auto) 45.4 Lymph % (Auto) 40.5 Barry % (Auto) 10.4 H Eos % (Auto) 2.3 Baso % (Auto) 0.5 Immature Gran # (Auto) 0.10 H Neut # (Auto) 4.99 Lymph # (Auto) 4.46 H Barry # (Auto) 1.15 H Eos # (Auto) 0.25 Baso # (Auto) 0.06 PT INR PTT (Actin FS) Sodium 142 Potassium 3.7 Chloride 109 H Carbon Dioxide 15 L Anion Gap 18 BUN 16 Creatinine 0.8 Estimated GFR/1.73 m2 > 60 BUN/Creatinine Ratio 20 Glucose 165 H POC Glucose Calculated Osmolality 288 Calcium 9.5 Magnesium Total Bilirubin 0.23 AST 23 ALT 23 Alkaline Phosphatase 54 Creatine Kinase 64 Troponin T High Sens Ani-S-Awjeesmuwvq Pept 278 Total Protein 6.4 Albumin 4.1 Globulin 2.3 Albumin/Globulin Ratio 1.8 TSH Free T4 Urine Source Urine Color Urine Turbidity Urine pH Ur Specific Mongo Urine Protein Ur Glucose (Stick) Ur Ketones (Stick) Urine Blood Urine Nitrite Urine Bilirubin Urobilinogen Dipstick Urine Leukocytes Urine WBC (Auto) Urine RBC (Auto) U Epithel Cells (Auto) Urine Bacteria (Auto) 08/24/19 08/24/19 08/24/19 23:30 23:30 23:30 WBC RBC Hgb Hct MCV MCH MCHC RDW Std Deviation Plt Count MPV Immature Gran % (Auto) Neut % (Auto) Lymph % (Auto) Barry % (Auto) Eos % (Auto) Baso % (Auto) Immature Gran # (Auto) Neut # (Auto) Lymph # (Auto) Barry # (Auto) Eos # (Auto) Baso # (Auto) PT 13.6 INR 1.03 PTT (Actin FS) 18.6 L Sodium Potassium Chloride Carbon Dioxide Anion Gap BUN Creatinine Estimated GFR/1.73 m2 BUN/Creatinine Ratio Glucose POC Glucose Calculated Osmolality Calcium Magnesium Total Bilirubin AST ALT Alkaline Phosphatase Creatine Kinase Troponin T High Sens 9 [id number]-Xchfcygekxe Pept Total Protein Albumin Globulin Albumin/Globulin Ratio TSH Free T4 Urine Source Urine Color Urine Turbidity Urine pH Ur Specific Mongo Urine Protein Ur Glucose (Stick) Ur Ketones (Stick) Urine Blood Urine Nitrite Urine Bilirubin Urobilinogen Dipstick Urine Leukocytes Urine WBC (Auto) Urine RBC (Auto) U Epithel Cells (Auto) Urine Bacteria (Auto) 08/24/19 08/24/19 08/24/19 23:30 23:30 23:30 WBC RBC Hgb Hct MCV MCH MCHC RDW Std Deviation Plt Count MPV Immature Gran % (Auto) Neut % (Auto) Lymph % (Auto) Barry % (Auto) Eos % (Auto) Baso % (Auto) Immature Gran # (Auto) Neut # (Auto) Lymph # (Auto) Barry # (Auto) Eos # (Auto) Baso # (Auto) PT INR PTT (Actin FS) Sodium Potassium Chloride Carbon Dioxide Anion Gap BUN Creatinine Estimated GFR/1.73 m2 BUN/Creatinine Ratio Glucose POC Glucose Calculated Osmolality Calcium Magnesium 1.7 Total Bilirubin AST ALT Alkaline Phosphatase Creatine Kinase Troponin T High Sens [id number]-C-Weelnahbnes Pept Total Protein Albumin Globulin Albumin/Globulin Ratio TSH 1.79 Free T4 1.19 Urine Source Urine Color Urine Turbidity Urine pH Ur Specific Mongo Urine Protein Ur Glucose (Stick) Ur Ketones (Stick) Urine Blood Urine Nitrite Urine Bilirubin Urobilinogen Dipstick Urine Leukocytes Urine WBC (Auto) Urine RBC (Auto) U Epithel Cells (Auto) Urine Bacteria (Auto) 08/24/19 08/25/19 23:49 00:10 WBC RBC Hgb Hct MCV MCH MCHC RDW Std Deviation Plt Count MPV Immature Gran % (Auto) Neut % (Auto) Lymph % (Auto) Barry % (Auto) Eos % (Auto) Baso % (Auto) Immature Gran # (Auto) Neut # (Auto) Lymph # (Auto) Barry # (Auto) Eos # (Auto) Baso # (Auto) PT INR PTT (Actin FS) Sodium Potassium Chloride Carbon Dioxide Anion Gap BUN Creatinine Estimated GFR/1.73 m2 BUN/Creatinine Ratio Glucose POC Glucose 161 H Calculated Osmolality Calcium Magnesium Total Bilirubin AST ALT Alkaline Phosphatase Creatine Kinase Troponin T High Sens [id number]-Ngqysyjmxdp Pept Total Protein Albumin Globulin Albumin/Globulin Ratio TSH Free T4 Urine Source CATH Urine Color YELLOW Urine Turbidity CLEAR Urine pH 5.5 Ur Specific Mongo 1.019 Urine Protein 100 A Ur Glucose (Stick) 70 A Ur Ketones (Stick) 10 A Urine Blood NEGATIVE Urine Nitrite NEGATIVE Urine Bilirubin NEGATIVE Urobilinogen Dipstick NORMAL Urine Leukocytes NEGATIVE Urine WBC (Auto) <10 Urine RBC (Auto) <10 U Epithel Cells (Auto) <10 Urine Bacteria (Auto) NEGATIVE Orders Category Date Time Status Admit - [facility] Routine AdmDCTranf 08/25/19 03:12 Active Activity Type ORDERED Care 08/25/19 03:14 Active Cardiac Monitoring DIRECTED Care 08/24/19 23:37 Active FSBS/Accucheck Result NOW Care 08/24/19 23:37 Active Barron Cath Insertion ORDERED Care 08/25/19 00:20 Active Nursing- MD Consult Request ROUTINE Care 08/25/19 03:22 Active Oxygen Therapy- ED Nursing DIRECTED Care 08/24/19 23:37 Active Repeat Vital Signs .Blood Pressure Care 08/25/19 01:35 Active Saline Loc NOW Care 08/24/19 23:37 Active Vital Signs Order Q1H Care 08/25/19 03:14 Active Physician/Provider Consults Routine Cons 08/25/19 03:22 Ordered Heart Healthy Diet Diet 08/25/19 03:15 Active CHEST-PORTABLE [RAD] Stat Exams 08/24/19 23:38 Completed A1C HGB W EST AVG GLUCOSE [CHEM] Routine Lab 08/26/19 06:00 Ordered CBC WITH ELECTRONIC DIFF [HEME] Stat Lab 08/24/19 23:30 Completed CK PROFILE [SP CHEM] Lab 08/25/19 19:15 Uncollected CK PROFILE [SP CHEM] Stat Lab 08/24/19 23:30 Completed CK PROFILE [SP CHEM] Stat Lab 08/25/19 07:50 Completed COMPREHENSIVE METABOLIC PANEL [CHEM] Stat Lab 08/24/19 23:30 Completed FREE T4 Routine Lab 08/25/19 03:21 Completed LIPID PROFILE W/CALC LDL [LIPIDS] Routine Lab 08/26/19 06:00 Ordered MAGNESIUM [CHEM] Stat Lab 08/24/19 23:30 Completed PRO B-NATRIURETIC PEPTIDE Stat Lab 08/24/19 23:30 Completed PROTIME WITH INR [COAG] Stat Lab 08/24/19 23:30 Completed PTT [COAG] Stat Lab 08/24/19 23:30 Completed TROPONIN T HIGH SENSITIVITY Lab 08/25/19 19:15 Uncollected TROPONIN T HIGH SENSITIVITY Stat Lab 08/24/19 23:30 Completed TROPONIN T HIGH SENSITIVITY Stat Lab 08/25/19 07:50 Completed TSH Routine Lab 08/26/19 06:00 Ordered TSH Stat Lab 08/24/19 23:30 Completed UA Reflex [URINALYSIS W/POSS RFLX CULT] [URINALYSIS] Lab 08/25/19 00:10 Completed Stat ATORVAstatin [Lipitor] Med 08/25/19 09:00 Active 40 mg PO DAILY Amiodarone 360 mg/D5w [Cordarone 360 mg/D5w] Med 08/25/19 00:02 Discontinued 360 mg in 200 ml IV ONCE Aspirin Med 08/25/19 09:00 Discontinued 325 mg PO DAILY Aspirin Med 08/24/19 23:37 Discontinued 325 mg PO NOW ONE Aspirin Med 08/25/19 09:00 Active 81 mg PO DAILY Clopidogrel [Plavix] Med 08/25/19 09:00 Active 75 mg PO DAILY Dextrose 5%-Water Inj [D5w] 289.2 ml Med 08/25/19 06:02 Discontinued Amiodarone [Cordarone] 540 mg IV 16.667 mls/hr Diltiazem 100 mg/Ns [Cardizem 100 mg/Ns] Med 08/24/19 23:45 Discontinued 100 mg in 100 ml IV As Directed mls/hr Diltiazem [Cardizem] Med 08/24/19 23:35 Discontinued 20 mg IV NOW ONE Diltiazem [Cardizem] Med 08/24/19 23:56 Discontinued See Dose Instructions IV NOW ONE Enoxaparin [Lovenox] Med 08/26/19 09:00 Discontinued 40 mg SUBQ Q24H Folic Acid Med 08/25/19 09:00 Active 1 mg PO DAILY Insulin Human Regular [Humulin R] Med 08/25/19 07:00 Active See Protocol SUBQ 0700,1100,1600,2100 Magnesium Sulfate 2 gm/S.w.i. Med 08/24/19 23:36 Discontinued 2 gm in 50 ml IV NOW Metoprolol [Lopressor] Med 08/25/19 09:00 Active 25 mg PO Q12HR Morphine Med 08/25/19 00:03 Discontinued 4 mg .ROUTE .STK-MED ONE Morphine Med 08/24/19 23:56 Discontinued 4 mg IV NOW ONE Nitroglycerin Med 08/24/19 23:57 Discontinued 0.5 inch TOP NOW ONE Nitroglycerin Med 08/25/19 00:03 Discontinued 1 inch .ROUTE .STK-MED ONE Nitroglycerin Med 08/25/19 03:26 Active 1 inch TOP Q6H PRN PRN Omeprazole [Prilosec] Med 08/25/19 07:00 Active 20 mg PO DAILY@0700 Ondansetron [Zofran] Med 08/25/19 04:00 Discontinued 4 mg IV Q6H PRN Ondansetron [Zofran] Med 08/25/19 04:30 Active 4 mg IV Q6H PRN PRN PRAVAstatin [Pravachol] Med 08/25/19 21:00 Discontinued 20 mg PO HS Pantoprazole [Protonix] Med 08/25/19 07:00 Discontinued 40 mg PO DAILY@0700 CP/SOB/Palp >45 yrs of Age Stat Oth 08/24/19 23:37 Ordered EKG [EKG] Stat Ther 08/24/19 23:26 Draft EKG [EKG] Stat Ther 08/25/19 00:22 Draft Echo Spec/Color Doppler Routine Ther 08/25/19 03:21 Completed Transfer/Admit Order [TRANSFER] Routine Transfer 08/25/19 03:13 Completed This patient presented in atrial fibrillation and was given a cardizem push as well as magnesium infusion. She converted to sinus rhythm after that and had been without intervention since, not requiring amiodarone or cardizem drip. She remains in NSR. Dr. Boudreaux was consulted overnight and stated to add metoprolol to help for rate control. First set of labs ok with trop of 9 and BNP in 200s. Result Diagrams: 08/24/19 23:30 08/24/19 23:30 - REASSESSMENT Reassessment #1 Time Reassessed: 01:35 Status: improving (pt currently stable.) - EKG 2 Time of EKG reading by physician:: 00:31 EKG Read and Signed by:: Yoselin Thomas EKG Interpretation (*Must complete 3 of following elements*): Normal Rate: 58 Rhythm: sinus bradycardia [place]: normal QRS: RBB MO Interval: normal Prior EKG Comparison: changes noted (prior EKG had afib with rvr and lateral ischemia with ST depressions) 1 Time of EKG reading by physician:: 23:27 EKG Read and Signed by:: Yoselin Thomas EKG Interpretation (*Must complete 3 of following elements*): Abnormal Rate: 114 Rhythm: Afib with RVR [place]: normal ST Wave: non-specific ST changes (ST depression consistent with lateral ischemia) - CONSULTS/PCP/HOSPITALIST Notification #1 *Consult/PCP/Hospitalist*: Dr. Boudreaux Time Discussed: 01:35 Consult Disposition: Admit, other (will see in am. start metoprolol 25mg q6hr) Departure - Departure Date of Disposition Decision: 08/25/19 Time of Disposition Decision: 01:37 DIAGNOSIS: New onset atrial fibrillation, Ventricular fibrillation Disposition: ADMITTED INPATIENT 09 Certified Medical Emergency: Emergent Condition: Stable - Critical Care Note This patient required my direct & personal management of CC.: Yes Total Time (mins): 75 Critical Care Statement: This patient required my direct personal management to treat or rule out processes, the absence of which, could potentiallly result in sudden, clinically significant life or limb threatening deterioration. Attestation - Physician/ JOON Attestation Patient care was provided by Advanced Practice Provider:: No The physician spent face to face time with patient:: Yes Advanced Practice Provider documentation review:: Supervising physician onsite and consulted in the evaluation and care of this patient. The physician did have a face to face encounter with the patient.
[2019-08-25 00:25] LABS: BASO# 0.06 X1000 (0.0-0.2); BASO% 0.5 % (0.0-0.8); EOS# 0.25 X1000 (0.0-0.7); EOS% 2.3 % (0.0-10.0); HEMATOCRIT 38.6 % (37.0-47.0); IMM GRAN% 0.9 % (0.0-0.5); LYMPH# 4.46 X1000 (1.2-3.4); LYMPH% 40.5 % (20.5-51.1); MCHC 31.1 g/dL (33-37); MCV 83.7 FL (81-99); MONO# 1.15 X1000 (0.11-0.59); MONO% 10.4 % (1.7-9.3); MPV 11.9 FL (7.4-10.4); NEUT# 4.99 X1000 (1.4-6.5); NEUT% 45.4 % (42.2-75.2); PLT 370 X1000 (130-400); RBC 4.61 XMIL (4.2-5.4); RDW 21.2 % (11.5-14.5); WBC 11.01 X1000 (4.8-10.8)
[2019-08-25 00:41] LABS: ESTIMATED GFR > 60
[2019-08-25 00:46] LABS: AGAP 18; ALB/GLOB RATIO 1.8; ALBUMIN 4.1 g/dL (3.5-5.0); ALKALINE PHOSPHATASE 54 U/L (32-104); BUN 16 mg/dL (8-22); CALCIUM 9.5 mg/dL (8.8-10.2); CHLORIDE 109 mmol/L (98-107); CK PROFILE 64 U/L (24-173); COSMO 288; CREATININE 0.8 mg/dL (0.5-0.9); GLUCOSE 165 mg/dL (70-104); GOT 23 U/L (10-30); GPT 23 U/L (10-36); POTASSIUM 3.7 mmol/L (3.5-5.1); SODIUM 142 mmol/L (136-145); TCO2 15 mmol/L (25-35); TOTAL BILIRUBIN 0.23 mg/dL (0.20-1.00); TOTAL PROTEIN 6.4 g/dL (6.3-8.3)
[2019-08-25 03:22] LABS: URINE SOURCE CATH
[2019-08-25] MEDS ORDERED: NITROGLYCERIN TOP PRN (03:26)
[2019-08-25 03:28] LABS: BILIRUBIN URINE NEGATIVE (NEGATIVE); BLOOD URINE NEGATIVE (NEGATIVE); COLOR YELLOW; GLUCOSE URINE 70 mg/dL (NEGATIVE); KETONE URINE 10 mg/dL (NEGATIVE); LEUKOCYTES URINE NEGATIVE (NEGATIVE); NITRITE URINE NEGATIVE (NEGATIVE); PH URINE 5.5; PROTEIN URINE 100 mg/dL (NEGATIVE); SP GRAVITY URINE 1.019; TURBIDITY URINE CLEAR (CLEAR); UR EPITHELIAL CELLS <10 /HPF (<10); URINE BACTERIA NEGATIVE /HPF; URINE RBC <10 /HPF (<10); URINE WBC <10 /HPF (<10); UROBILINOGEN URINE NORMAL (NORMAL)
[2019-08-25] MEDS ORDERED: ZOFRAN IV PRN ×2 (04:00→04:30)
--- NOTE | 2019-08-25 04:44 | EKG Report ---
Test Performed on : 08/25/2019 00:25:47 AM Test Reason : cp/post arrest Blood Pressure : / mmHG Vent. Rate : 058 BPM Atrial Rate : 058 BPM P-R Int : 180 ms QRS Dur : 126 ms QT Int : 456 ms P-R-T Axes : 075 037 069 degrees QTc Int : 447 ms Sinus bradycardia. Right bundle branch block Abnormal ECG When compared with ECG of 08-AUG-2019 05:55, Right bundle branch block has replaced Incomplete right bundle branch block Criteria for Septal infarct are no longer present Unconfirmed Result
[2019-08-25] MEDS ORDERED: CORDARONE 540 MG in D5W 289.2 ML IV ONE (06:02)
--- NOTE | 2019-08-25 06:26 | Diag Imaging Result Doc PS360 ---
CHEST-PORTABLE - 08/24/2019 INDICATION: post arrest COMPARISON: 08/17/2019 FINDINGS: There is mild cardiomegaly. There is some central atelectasis or perihilar infiltrate. There are a couple stable nodules in the lateral left lung base. Heart size and pulmonary vascularity is normal. No pneumothorax or pleural effusion. IMPRESSION: Mild cardiomegaly. Central atelectasis or perihilar infiltrate bilaterally, nonspecific. Electronically signed by Rudolph Lagos 08/25/2019 6:23 AM
[2019-08-25] MEDS ORDERED: PRILOSEC PO SCH (07:00)
[2019-08-25] MEDS: HUMULIN R SUBQ SCH ×2 (07:00→11:00)
[2019-08-25] MEDS ORDERED: PROTONIX PO SCH (07:00)
--- NOTE | 2019-08-25 08:11 | HISTORY AND PHYSICAL ---
CHIEF COMPLAINT: Chest pain. HISTORY OF PRESENT ILLNESS: Ms. Silvia Krishnamurthy is a 78-year-old female who has a history of coronary artery disease with about 12 stents. She also has a history of diabetes mellitus and also rheumatoid arthritis. At about 10 p.m. on 08/24/2019, the patient developed mid chest pain which she describes as pressure-like. On a scale of 0 to 10, it is 10/10. It radiates to her right upper extremity. She had some slight improvement with nitroglycerin. She denies any shortness of breath. No palpitations or diaphoresis. No loss of consciousness. The patient called 911 and while she was being brought to the hospital by ambulance services, the patient developed ventricular fibrillation and she had to be defibrillated twice. On presenting to the ER, the patient was noted to be in atrial fibrillation with a rapid ventricular rate. The patient was started on amiodarone as well as a Cardizem infusion. She will be admitted to the intensive care unit for further management. PAST MEDICAL HISTORY: Coronary artery disease, diabetes mellitus, rheumatoid arthritis. PAST SURGICAL HISTORY: She has had surgery on both feet as well as a partial hysterectomy. ALLERGIES: She is allergic to sulfa. SOCIAL HISTORY: No history of cigarette smoking, alcohol, or drug use. FAMILY HISTORY: Positive for cancer as well as heart disease. MEDICATIONS: Include the following: Aspirin 81 mg p.o. daily, folic acid 1 mg p.o. daily, methotrexate 6 tablets as directed, Plavix 75 mg once a day, diltiazem 120 mg p.o. daily, meclizine 25 mg p.o. p.r.n., pantoprazole 40 mg once a day, pravastatin 20 mg p.o. daily, Janumet 100/1000 daily. REVIEW OF SYSTEMS: Constitutional: No fever. HAND PICKER: No headaches. Eyes: She has blurred vision. ENT: No sinus problem. Respiratory: Has cough. GI: No nausea, vomiting, diarrhea, abdominal pain. : No dysuria. Musculoskeletal: Has joint pains. Endocrinology: Has diabetes. No thyroid disease. Dermatology: No skin lesions. Hematology: No bleeding problems. Allergy/Immunology: No symptoms suggestive of allergic rhinitis. PHYSICAL EXAMINATION: VITAL SIGNS: Temperature is 97.7 degrees, pulse 121, respiratory rate is 18, blood pressure 177/113, oxygen saturation is 100%. HEENT: She is atraumatic, normocephalic. She is anicteric. Extraocular movements intact. No oral lesions noted. NECK: No lymphadenopathy or thyromegaly. CARDIOVASCULAR SYSTEM: S1, S2. RESPIRATORY SYSTEM: Has evidence of good air entry bilaterally. ABDOMEN: Soft, nontender. No masses felt. EXTREMITIES: No evidence of significant edema. CENTRAL NERVOUS SYSTEM: No obvious focal deficit noted. LABORATORY DATA: WBC is 11.01, hematocrit 38.6, with a platelet count of 370,000. Sodium is 142, potassium is 3.7, chloride is 109, bicarb is 15, BUN is 16, creatinine 0.6. ASSESSMENT AND PLAN: 1. Chest pain, rule out myocardial infarction/history of coronary artery disease. Place patient on telemetry. Obtain serial cardiac enzymes. Maintain patient on antiplatelet agent, beta bishnu, nitroglycerin as needed for chest pain, as well as a statin. Consult with cardiology. 2. Status post atrial fibrillation. The patient is currently an amiodarone infusion. Cardiology consulted. 3. Atrial fibrillation. Maintain patient on a rate-controlling agent. Check thyroid function tests. Obtain 2D echo of the heart. Cardiology consulted. 4. Diabetes mellitus. Maintain patient on sliding scale insulin. Monitor blood sugar levels. Check hemoglobin A1c. 5. History of rheumatoid arthritis. Continue methotrexate. 6. Deep vein thrombosis prophylaxis. Lovenox. 7. Gastrointestinal prophylaxis. Proton pump inhibitor. cc: Alec Cervantes MD
[2019-08-25 08:45] LABS: CK INDEX 15.2 (0.0-2.5); CK-MB 70.67 ng/mL (0.0-5.0)
[2019-08-25] MEDS ORDERED: LOPRESSOR PO SCH (09:00)
[2019-08-25] MEDS ORDERED: FOLIC ACID PO SCH (09:00)
[2019-08-25] MEDS ORDERED: ASPIRIN PO SCH ×2 (09:00)
[2019-08-25] MEDS ORDERED: LIPITOR PO SCH (09:00)
[2019-08-25] MEDS: PLAVIX PO SCH ×2 (09:00→09:16)
[2019-08-25] MEDS ORDERED: LOVENOX SUBQ SCH (10:00)
--- NOTE | 2019-08-25 11:11 | EKG Report ---
Test Performed on : 08/25/2019 08:49:12 AM Test Reason : change of rhythm Blood Pressure : / mmHG Vent. Rate : 061 BPM Atrial Rate : 061 BPM P-R Int : 118 ms QRS Dur : 100 ms QT Int : 444 ms P-R-T Axes : 033 012 072 degrees QTc Int : 446 ms Normal sinus rhythm. Incomplete right bundle branch block Nonspecific ST and T wave abnormality Abnormal ECG When compared with ECG of 25-AUG-2019 00:25, (Unconfirmed) Incomplete right bundle branch block has replaced Right bundle branch block Unconfirmed Result
--- NOTE | 2019-08-25 14:15 | CARDIOLOGY CONSULTATION ---
DATE: 08/25/2019 CHIEF COMPLAINT: Chest pain. HISTORY OF PRESENT ILLNESS: Ms Krishnamurthy is a 78-year-old white female with a history of coronary disease with multiple PCIs. She is normally followed by Dr. Courtney lópez in [place]. Yesterday while she was getting ready for bed, she had some pressure-like chest discomfort that began with minimal activity. Again, it began while she was getting ready for bed. This persisted for quite some time, did not respond to nitroglycerin and she ultimately called EMS. Apparently on transfer over via EMS, she had an episode of ventricular fibrillation. We do not have any physical documentation of this event as it EMS did not leave any physical documentation reporting this. She received apparently a shock. Again, this is all via verbal history. When she recalls coming to, she did not have any discomfort in her chest. She apparently has been compliant with medications at home although it sounds like in the last few months, she had some discontinuation of medicines but she is not clear of the exact ones. These were done upon instruction from physicians. Again, we do not have details of the discontinuations. PAST MEDICAL HISTORY: 1. Significant for coronary disease with previous PCIs. These were all done down in [facility]. We do not have any records of this. 2. Diabetes. 3. Rheumatoid arthritis. 4. Hyperlipidemia. 5. Hypertension. SOCIAL HISTORY: No current tobacco use or alcohol. FAMILY HISTORY: Significant for hypertension. REVIEW OF SYSTEMS: A 10 system review of systems is negative except for those things mentioned in the HPI. PHYSICAL EXAMINATION: Vital signs: She is afebrile, heart rates 64, blood pressure 118/76. General: She is in no acute distress. HEENT: Oropharynx is moist. Normal dentition. Eye examination shows pink conjunctivae, white sclerae. Neck: Examination shows no obvious thyromegaly or thyroid tenderness. Cardiovascular: She sounds to be in a regular rate and rhythm. She has no obvious murmurs. She has no S3. She has no lower extremity edema. Chest: Sounds clear bilaterally. She has no increased work of breathing. Abdomen: Soft, nontender. She has no obvious organomegaly. Skin: Warm and dry throughout without any rashes. Neurological: She is moving all extremities well. PERTINENT DATA: She had an EKG on the 14 just after midnight that shows sinus rhythm with mild nonspecific ST changes in the anterolateral leads. She had another EKG that was noted prior to that just after presentation that showed marked ischemic changes in the anterolateral leads. Her lab data shows a white count 11, hematocrit 38, platelet count 370,000. Sodium is 142, potassium 3.7, BUN 16, creatinine 0.8. Her initial CK is 465, MB 70. Troponin initially was 9, increased to 383. ProBNP 278. TSH is normal. ASSESSMENT: Ms. Krishnamurthy is a 78-year-old female who presents with chest discomfort and acute coronary syndrome. En route, she reportedly had an episode of ventricular fibrillation but chair car driver left no documentation to support this. PLAN: At this point, I would recommend transfer to a [facility] Center. She has a history of coronary disease, and her symptoms of angina, ventricular fibrillation, elevated troponins and marked EKG abnormalities would suggest an unstable situation. I have discussed this with her. Apparently there are no beds available at [facility], which is her preferred facility. I discussed this with her and told her that I would recommend being in a PCI facility today to hopefully have a cardiac catheterization done today. I will contact [facility] for facilitation of that transfer. cc: Roderick Weber MD
[2019-08-25 15:44] VITALS: BP 113/57
--- NOTE | 2019-08-25 18:02 | ECHO REPORT ---
ORDER DATE: 08/25/2019 INTERPRETING PHYSICIAN: Dr. Jaswant Boudreaux. REQUESTING PHYSICIAN: Dr. Alec Cervantes. CLINICAL INDICATIONS: A 78-year-old female with atrial fibrillation, cardiac arrest. M-MODE MEASUREMENTS: Left ventricle end diastole: 5.2 cm. Left ventricle end systole: 3.0 cm. Posterior wall: 1.1 cm. Interventricular septum: 1.1 cm. Left atrium: 3.7 cm. Aortic root: 3.6 cm. SUMMARY OF 2-DIMENSIONAL IMAGIN. The study is difficult. The left ventricular systolic function appears to be globally preserved with ejection fraction estimated at 55% to 60%. 2. There is akinesis of the base of the posterior wall and base of inferior wall. That is consistent with previous myocardial infarct/scar. 3. Tricuspid valve shows mild degree of regurgitation. Pulmonary pressure is estimated at 46-51 mmHg. 4. Mitral valve shows mild degree of regurgitation. 5. Pulse wave Doppler of mitral inflow is normal. 6. Tissue Doppler of septal and lateral mitral annulus averages 8 cm. 7. There is no diastolic dysfunction. 8. Pulmonic valve is unremarkable. 9. Aortic valve has mild sclerosis of the cusps. Color flow mapping unremarkable. There is no aortic stenosis. 10.There is no mass and no thrombus. 11.Right-sided chambers appear to be normal. 12.Left atrium is mildly enlarged. Clinical correlation is recommended. cc: MD Alec Goodwin MD [facility]
[2019-08-25] MEDS ORDERED: PRAVACHOL PO SCH (21:00)
[2019-08-26] MEDS ORDERED: LOVENOX SUBQ SCH (09:00)
== END 2019-08-26 15:10 | disposition short-term general hospital (02) | DRG 313 ==
LOC: ED 23:23 → SUATTDRO 08-25 07:38 → EDIPHOLD 08-25 07:38
PROVIDERS: ATTEND Emergency Medicine